=== PATIENT | male | born 1965 | race Caucasian/White ===

== ENCOUNTER 2020-10-10 12:36 | Inpatient (IN) | payer BC, SELFPAY ==
[~2020-10-10] VITALS: Ht 182.9 cm; Wt 99.8 kg
[2020-10-10 13:03] VITALS: BP_SYST 148
[2020-10-10] MEDS ORDERED: AZITHROMYCIN 500 MG in NS 250 ML IV ONE (13:30)
[2020-10-10] MEDS ORDERED: DEXAMETHASONE SOD PHOSPHATE 10 MG/ML VIAL IVP ONE (13:30)
[2020-10-10 13:58] LABS: BILIRUBIN,URINE NEGATIVE (NEGATIVE); BLOOD, URINE 3+ (NEGATIVE); CLARITY/URINE CLEAR (CLEAR); COLOR,URINE YELLOW (YELLOW); GLUCOSE,URINE NEGATIVE (NEGATIVE); KETONES,URINE TRACE (NEGATIVE); LEUKOCYTE ESTERASE ,URINE NEGATIVE (NEGATIVE); NITRITE, URINE NEGATIVE (NEGATIVE); PROTEIN URINE 2+ (NEGATIVE)
[2020-10-10 14:11] LABS: CALCIUM 8.1 mg/dL (8.4-11.0); CREATININE 1.06 mg/dL (0.55-1.30); POTASSIUM 3.8 mmol/L (3.5-5.1)
[2020-10-10 14:14] LABS: BASOPHILS % (AUTO) 0.4 % (0.0-2.0); HEMATOCRIT 44.7 % (36-54); HEMOGLOBIN 15.5 g/dL (14.0-18.0); LYMPHOCYTES # (AUTO) 0.5 K/uL (1.0-5.5); LYMPHOCYTES % (AUTO) 13.4 % (20.5-51.5); MEAN CORPUSCULAR HEMOGLOBIN 29 pg (27-31); MEAN CORPUSCULAR HGB CONC 35 % (32-36); MEAN CORPUSCULAR VOLUME 84 fL (79.0-98.0); MONOCYTES # (AUTO) 0.3 K/uL (0.0-1.0); MONOCYTES % (AUTO) 7.8 % (1.7-9.3); NEUTROPHILS # (AUTO) 3.1 K/uL (1.8-7.7); NEUTROPHILS % (AUTO) 78.4 % (40.0-70.0); PLATELET COUNT (AUTO) 81 K/uL (130-430); RED BLOOD CELL COUNT(AUTO) 5.31 MIL/uL (4.2-6.2); RED CELL DISTRIBUTION WIDTH 13.1 % (9.0-15.0)
[2020-10-10] MEDS ORDERED: AZITHROMYCIN 500 MG/VIAL (ZITHROMAX) IV ONE (14:19)
[2020-10-10 14:23] LABS: PROTHROMBIN TIME 9.9 SECS (9.5-12.5)
[2020-10-10 14:25] LABS: RBC,URINE 0-3 /HPF (0-3); WBC,URINE 0-3 /HPF (0-3)
[2020-10-10 14:26] LABS: ALBUMIN 3.4 g/dL (3.4-4.8)
[2020-10-10 14:26] LABS: BACTERIA,URINE RARE /HPF (None Seen); MUCUS,URINE 1+ /LPF (None Seen)
[2020-10-10 14:55] LABS: C-REACTIVE PROTEIN QUANT 19.8 mg/dL (0-0.5)
[2020-10-10] MEDS: 0.45% NACL 1,000 ML IV SCH (17:31)
[2020-10-10] MEDS ORDERED: DOXYCYCLINE HYCLATE 100 MG VIAL IV ONE (20:24)
[2020-10-10] MEDS: DOXYCYCLINE HYCLATE 100 MG in D5W 100 ML IV SCH (20:46)
[2020-10-10] MEDS ORDERED: ASCORBIC ACID 500 MG TABLET PO ONE (21:00)
[2020-10-10] MEDS ORDERED: ENOXAPARIN SODIUM 40 MG/0.4 ML SYRINGE SUBCUT ONE (21:00)
[2020-10-11] VITALS: BP_SYST 145
[2020-10-11 00:30] VITALS: BP_SYST 150
[2020-10-11] MEDS: 0.45% NACL 1,000 ML IV SCH ×2 (05:06→17:23)
[2020-10-11 06:58] LABS: CALCIUM 7.9 mg/dL (8.4-11.0); CREATININE 0.85 mg/dL (0.55-1.30); POTASSIUM 3.3 mmol/L (3.5-5.1)
[2020-10-11 07:01] LABS: BASOPHILS % (AUTO) 0.1 % (0.0-2.0); HEMATOCRIT 42.3 % (36-54); HEMOGLOBIN 14.5 g/dL (14.0-18.0); LYMPHOCYTES # (AUTO) 0.4 K/uL (1.0-5.5); LYMPHOCYTES % (AUTO) 12.4 % (20.5-51.5); MEAN CORPUSCULAR HEMOGLOBIN 29 pg (27-31); MEAN CORPUSCULAR HGB CONC 34 % (32-36); MEAN CORPUSCULAR VOLUME 85 fL (79.0-98.0); MONOCYTES # (AUTO) 0.3 K/uL (0.0-1.0); NEUTROPHILS # (AUTO) 2.6 K/uL (1.8-7.7); NEUTROPHILS % (AUTO) 78.5 % (40.0-70.0); PLATELET COUNT (AUTO) 98 K/uL (130-430); RED CELL DISTRIBUTION WIDTH 13.7 % (9.0-15.0); WHITE BLOOD COUNT (AUTO) 3.4 K/uL (4.8-10.8)
[2020-10-11 08:10] VITALS: BP_SYST 146
[2020-10-11] MEDS: CHOLECALCIFEROL (VITAMIN D3) 5,000 UNIT TABLET PO SCH (10:30)
[2020-10-11] MEDS: ENOXAPARIN SODIUM 40 MG/0.4 ML SYRINGE SUBCUT SCH ×2 (10:30→21:00)
[2020-10-11] MEDS: ASCORBIC ACID 500 MG TABLET PO SCH ×2 (10:30→21:00)
[2020-10-11] MEDS: DEXAMETHASONE SOD PHOSPHATE 10 MG/ML VIAL IVP SCH (10:30)
[2020-10-11] MEDS: DOXYCYCLINE HYCLATE 100 MG in D5W 100 ML IV SCH ×2 (10:31→21:00)
[2020-10-11 11:45] LABS: C-REACTIVE PROTEIN QUANT 17.4 mg/dL (0-0.5)
[2020-10-11 12:40] VITALS: BP_SYST 146
[2020-10-11 16:05] VITALS: BP_SYST 146
[2020-10-11 20:00] VITALS: BP_SYST 135
[2020-10-12] VITALS: BP_SYST 128
[2020-10-12] MEDS: 0.45% NACL 1,000 ML IV SCH ×2 (06:57→21:05)
[2020-10-12] MEDS: DOXYCYCLINE HYCLATE 100 MG in D5W 100 ML IV SCH ×2 (08:03→21:00)
[2020-10-12] MEDS: FAMOTIDINE 20 MG TABLET PO SCH (08:04)
[2020-10-12] MEDS: CHOLECALCIFEROL (VITAMIN D3) 5,000 UNIT TABLET PO SCH (08:04)
[2020-10-12] MEDS: DEXAMETHASONE SOD PHOSPHATE 10 MG/ML VIAL IVP SCH (08:04)
[2020-10-12] MEDS: ASCORBIC ACID 500 MG TABLET PO SCH ×2 (08:04→21:00)
[2020-10-12 08:07] VITALS: BP_SYST 137
[2020-10-12 08:52] LABS: BASOPHILS % (AUTO) 0.1 % (0.0-2.0); HEMOGLOBIN 14.1 g/dL (14.0-18.0); LYMPHOCYTES # (AUTO) 0.8 K/uL (1.0-5.5); LYMPHOCYTES % (AUTO) 8.8 % (20.5-51.5); MEAN CORPUSCULAR HEMOGLOBIN 30 pg (27-31); MEAN CORPUSCULAR HGB CONC 35 % (32-36); MEAN CORPUSCULAR VOLUME 84 fL (79.0-98.0); MONOCYTES # (AUTO) 0.6 K/uL (0.0-1.0); MONOCYTES % (AUTO) 6.5 % (1.7-9.3); NEUTROPHILS # (AUTO) 7.5 K/uL (1.8-7.7); NEUTROPHILS % (AUTO) 84.6 % (40.0-70.0); PLATELET COUNT (AUTO) 144 K/uL (130-430); RED BLOOD CELL COUNT(AUTO) 4.74 MIL/uL (4.2-6.2); RED CELL DISTRIBUTION WIDTH 13.4 % (9.0-15.0); WHITE BLOOD COUNT (AUTO) 8.9 K/uL (4.8-10.8)
[2020-10-12] MEDS: BUDESONIDE 0.5 MG/2 ML AMPUL.NEB INH SCH (09:00)
[2020-10-12 09:27] LABS: CREATININE 0.82 mg/dL (0.55-1.30); POTASSIUM 3.5 mmol/L (3.5-5.1)
[2020-10-12] MEDS: ENOXAPARIN SODIUM 40 MG/0.4 ML SYRINGE SUBCUT SCH ×2 (09:37→21:00)
[2020-10-12 12:08] LABS: C-REACTIVE PROTEIN QUANT 8.1 mg/dL (0-0.5)
[2020-10-12] MEDS: cefTRIAXone 1 GM in D5W 50 ML IV SCH (16:12)
[2020-10-12] MEDS: ONDANSETRON HCL 4 MG/2 ML VIAL IVP PRN ×2 (16:58→23:33)
[2020-10-12 17:08] VITALS: BP_SYST 137
[2020-10-12 20:00] VITALS: BP_SYST 142
[2020-10-12] MEDS: ALPRAZolam 0.25 MG TABLET PO PRN (23:33)
[2020-10-12] MEDS: ALBUTEROL MDI INHALATION 8 GM INH INH PRN (23:33)
[2020-10-13] VITALS: BP_SYST 138
[2020-10-13 08:00] VITALS: BP_SYST 142
[2020-10-13] MEDS: DEXAMETHASONE SOD PHOSPHATE 10 MG/ML VIAL IVP SCH (08:53)
[2020-10-13] MEDS: ASCORBIC ACID 500 MG TABLET PO SCH ×3 (08:53→21:00)
[2020-10-13] MEDS: FAMOTIDINE 20 MG TABLET PO SCH ×2 (08:53→09:00)
[2020-10-13] MEDS: CHOLECALCIFEROL (VITAMIN D3) 5,000 UNIT TABLET PO SCH ×2 (08:53→09:00)
[2020-10-13] MEDS: ENOXAPARIN SODIUM 40 MG/0.4 ML SYRINGE SUBCUT SCH ×2 (08:53→21:00)
[2020-10-13] MEDS: DOXYCYCLINE HYCLATE 100 MG in D5W 100 ML IV SCH ×2 (08:55→21:00)
[2020-10-13] MEDS: BUDESONIDE 0.5 MG/2 ML AMPUL.NEB INH SCH ×2 (09:00→19:27)
[2020-10-13] MEDS: 0.45% NACL 1,000 ML IV SCH ×2 (10:25→12:10)
[2020-10-13] MEDS: ALBUTEROL MDI INHALATION 8 GM INH INH PRN (10:47)
[2020-10-13 12:10] VITALS: BP_SYST 135
[2020-10-13] MEDS: cefTRIAXone 1 GM in D5W 50 ML IV SCH (15:15)
[2020-10-13 16:00] VITALS: BP_SYST 126
[2020-10-13 20:00] VITALS: BP_SYST 130
[2020-10-14] VITALS: BP_SYST 125
[2020-10-14] MEDS: ASCORBIC ACID 500 MG TABLET PO SCH ×2 (09:00→22:13)
[2020-10-14] MEDS: DEXAMETHASONE SOD PHOSPHATE 10 MG/ML VIAL IVP SCH (09:00)
[2020-10-14] MEDS: CHOLECALCIFEROL (VITAMIN D3) 5,000 UNIT TABLET PO SCH (09:00)
[2020-10-14] MEDS: ENOXAPARIN SODIUM 40 MG/0.4 ML SYRINGE SUBCUT SCH ×2 (09:00→22:14)
[2020-10-14] MEDS: DOXYCYCLINE HYCLATE 100 MG in D5W 100 ML IV SCH ×2 (09:00→22:13)
[2020-10-14] MEDS: FAMOTIDINE 20 MG TABLET PO SCH (09:00)
[2020-10-14 09:39] LABS: BASOPHILS % (AUTO) 0.3 % (0.0-2.0); EOSINOPHILS % (AUTO) 0.2 % (0.0-4.0); HEMATOCRIT 43.2 % (36-54); HEMOGLOBIN 14.9 g/dL (14.0-18.0); LYMPHOCYTES # (AUTO) 0.8 K/uL (1.0-5.5); LYMPHOCYTES % (AUTO) 8.5 % (20.5-51.5); MEAN CORPUSCULAR HEMOGLOBIN 29 pg (27-31); MEAN CORPUSCULAR HGB CONC 34 % (32-36); MEAN CORPUSCULAR VOLUME 84 fL (79.0-98.0); MONOCYTES # (AUTO) 0.7 K/uL (0.0-1.0); MONOCYTES % (AUTO) 7.7 % (1.7-9.3); NEUTROPHILS # (AUTO) 7.5 K/uL (1.8-7.7); NEUTROPHILS % (AUTO) 83.3 % (40.0-70.0); PLATELET COUNT (AUTO) 217 K/uL (130-430); RED BLOOD CELL COUNT(AUTO) 5.13 MIL/uL (4.2-6.2); RED CELL DISTRIBUTION WIDTH 13.7 % (9.0-15.0)
[2020-10-14 11:05] VITALS: BP_SYST 133
[2020-10-14] MEDS: 0.45% NACL 1,000 ML IV SCH ×2 (13:05→16:25)
[2020-10-14 14:47] VITALS: BP_SYST 133
[2020-10-14 15:30] VITALS: BP_SYST 130
[2020-10-14] MEDS: cefTRIAXone 1 GM in D5W 50 ML IV SCH (15:32)
[2020-10-14 20:00] VITALS: BP_SYST 130
[2020-10-14 23:30] VITALS: BP_SYST 127
[2020-10-15] MEDS: 0.45% NACL 1,000 ML IV SCH (06:34)
[2020-10-15] MEDS: ACETAMINOPHEN 325 MG TABLET PO PRN ×2 (06:35→12:15)
[2020-10-15] MEDS: CHOLECALCIFEROL (VITAMIN D3) 5,000 UNIT TABLET PO SCH (09:00)
[2020-10-15] MEDS: FAMOTIDINE 20 MG TABLET PO SCH (09:00)
[2020-10-15] MEDS: ENOXAPARIN SODIUM 40 MG/0.4 ML SYRINGE SUBCUT SCH ×2 (09:00→23:00)
[2020-10-15] MEDS: DOXYCYCLINE HYCLATE 100 MG in D5W 100 ML IV SCH ×2 (09:00→23:00)
[2020-10-15] MEDS: ASCORBIC ACID 500 MG TABLET PO SCH ×2 (09:00→23:35)
[2020-10-15] MEDS: DEXAMETHASONE SOD PHOSPHATE 10 MG/ML VIAL IVP SCH (09:00)
[2020-10-15 10:20] VITALS: BP_SYST 131
[2020-10-15 12:00] VITALS: BP_SYST 141
[2020-10-15] MEDS: cefTRIAXone 1 GM in D5W 50 ML IV SCH (15:00)
[2020-10-15 16:00] VITALS: BP_SYST 125
[2020-10-15 20:30] VITALS: BP_SYST 150
[2020-10-15] MEDS: BUDESONIDE 0.5 MG/2 ML AMPUL.NEB INH SCH (21:00)
[2020-10-15 23:20] VITALS: BP_SYST 157
[2020-10-15] MEDS: ALPRAZolam 0.25 MG TABLET PO PRN (23:35)
[2020-10-16 00:30] VITALS: BP_SYST 110
[2020-10-16] MEDS: 0.45% NACL 1,000 ML IV SCH ×2 (00:30→19:05)
[2020-10-16] MEDS: ALBUTEROL MDI INHALATION 8 GM INH INH PRN (00:48)
[2020-10-16] MEDS ORDERED: LORazepam 2 MG/ML VIAL IVP PRN (02:00)
[2020-10-16] MEDS ORDERED: ALPRAZolam 0.25 MG TABLET PO PRN (02:45)
[2020-10-16] MEDS: FAMOTIDINE 20 MG TABLET PO SCH (09:00)
[2020-10-16] MEDS: CHOLECALCIFEROL (VITAMIN D3) 5,000 UNIT TABLET PO SCH (09:00)
[2020-10-16] MEDS: ASCORBIC ACID 500 MG TABLET PO SCH ×2 (09:00→21:15)
[2020-10-16 09:30] VITALS: BP_SYST 130
[2020-10-16] MEDS: DOXYCYCLINE HYCLATE 100 MG in D5W 100 ML IV SCH ×2 (10:07→21:15)
[2020-10-16] MEDS: DEXAMETHASONE SOD PHOSPHATE 10 MG/ML VIAL IVP SCH (10:07)
[2020-10-16] MEDS: ENOXAPARIN SODIUM 40 MG/0.4 ML SYRINGE SUBCUT SCH ×2 (10:13→21:15)
[2020-10-16 12:30] VITALS: BP_SYST 138
[2020-10-16] MEDS: cefTRIAXone 1 GM in D5W 50 ML IV SCH (15:13)
[2020-10-16 17:00] VITALS: BP_SYST 129
[2020-10-16 20:20] VITALS: BP_SYST 140
[2020-10-16] MEDS: BUDESONIDE 0.5 MG/2 ML AMPUL.NEB INH SCH (20:58)
[2020-10-17] VITALS (18 sets, daily range): BP systolic 106–156
[2020-10-17] MEDS: MEROPENEM 1 GM in NS 100 ML IV SCH (01:00)
[2020-10-17] MEDS: ONDANSETRON HCL 4 MG/2 ML VIAL IVP PRN (03:15)
[2020-10-17 07:19] LABS: BASOPHILS # (AUTO) 0.1 K/uL (0.0-0.2); BASOPHILS % (AUTO) 0.5 % (0.0-2.0); EOSINOPHILS % (AUTO) 0.3 % (0.0-4.0); HEMATOCRIT 42.7 % (36-54); HEMOGLOBIN 14.4 g/dL (14.0-18.0); LYMPHOCYTES # (AUTO) 0.7 K/uL (1.0-5.5); MEAN CORPUSCULAR HEMOGLOBIN 29 pg (27-31); MEAN CORPUSCULAR HGB CONC 34 % (32-36); MEAN CORPUSCULAR VOLUME 86 fL (79.0-98.0); MONOCYTES # (AUTO) 0.8 K/uL (0.0-1.0); MONOCYTES % (AUTO) 5.8 % (1.7-9.3); NEUTROPHILS # (AUTO) 12.8 K/uL (1.8-7.7); NEUTROPHILS % (AUTO) 88.4 % (40.0-70.0); RED BLOOD CELL COUNT(AUTO) 4.97 MIL/uL (4.2-6.2); RED CELL DISTRIBUTION WIDTH 13.6 % (9.0-15.0)
[2020-10-17 07:47] LABS: CALCIUM 8.7 mg/dL (8.4-11.0); CREATININE 0.87 mg/dL (0.55-1.30)
[2020-10-17 07:58] LABS: WHITE BLOOD COUNT (AUTO) 14.5 K/uL (4.8-10.8)
[2020-10-17] MEDS: ENOXAPARIN SODIUM 40 MG/0.4 ML SYRINGE SUBCUT SCH ×2 (09:00→21:54)
[2020-10-17] MEDS: FAMOTIDINE 20 MG TABLET PO SCH (09:00)
[2020-10-17] MEDS: CHOLECALCIFEROL (VITAMIN D3) 5,000 UNIT TABLET PO SCH (09:00)
[2020-10-17] MEDS: BUDESONIDE 0.5 MG/2 ML AMPUL.NEB INH SCH (09:00)
[2020-10-17] MEDS: ASCORBIC ACID 500 MG TABLET PO SCH ×2 (09:00→21:53)
[2020-10-17] MEDS: DEXAMETHASONE SOD PHOSPHATE 10 MG/ML VIAL IVP SCH (10:43)
[2020-10-17] MEDS ORDERED: SUCCINYLCHOLINE CHLORIDE 20 MG/ML(QUELICIN) IVP ONE (12:27)
[2020-10-17] MEDS ORDERED: PANCURONIUM BROMIDE 10 MG/10 ML VIAL (PAVULON) IV ONE (12:27)
[2020-10-17] MEDS ORDERED: ROCURONIUM BROMIDE 10 MG/ML (ZEMURON) IV ONE (12:27)
[2020-10-17] MEDS ORDERED: PROPOFOL DRIP 100 ML IV ONE (12:44)
[2020-10-17 12:46] LABS: PLATELET COUNT (AUTO) 236 K/uL (130-430)
[2020-10-17] MEDS: 0.45% NACL 1,000 ML IV SCH ×2 (14:00→21:05)
[2020-10-17] MEDS: cefTRIAXone 1 GM in D5W 50 ML IV SCH (14:45)
[2020-10-17] MEDS ORDERED: NALOXONE HCL 0.4 MG/ML AMP (NARCAN) IVP PRN (16:45)
[2020-10-17] MEDS: PROPOFOL DRIP 100 ML IV PRN (18:32)
[2020-10-17] MEDS: LORazepam 2 MG/ML VIAL IVP PRN (23:26)
[2020-10-18] VITALS (27 sets, daily range): BP systolic 106–156
[2020-10-18] MEDS ORDERED: MEROPENEM 1 GM VIAL IV ONE (00:48)
[2020-10-18] MEDS: MEROPENEM 1 GM in NS 100 ML IV SCH (01:00)
[2020-10-18] MEDS: PROPOFOL DRIP 100 ML IV PRN ×4 (04:44→21:08)
[2020-10-18] MEDS: 0.45% NACL 1,000 ML IV SCH ×2 (05:57→13:45)
[2020-10-18 06:39] LABS: BASOPHILS % (AUTO) 0.1 % (0.0-2.0); EOSINOPHILS % (AUTO) 0.1 % (0.0-4.0); HEMATOCRIT 38.7 % (36-54); HEMOGLOBIN 12.9 g/dL (14.0-18.0); LYMPHOCYTES # (AUTO) 0.6 K/uL (1.0-5.5); LYMPHOCYTES % (AUTO) 4.9 % (20.5-51.5); MEAN CORPUSCULAR HEMOGLOBIN 29 pg (27-31); MEAN CORPUSCULAR HGB CONC 33 % (32-36); MEAN CORPUSCULAR VOLUME 86 fL (79.0-98.0); MONOCYTES # (AUTO) 0.6 K/uL (0.0-1.0); MONOCYTES % (AUTO) 4.6 % (1.7-9.3); NEUTROPHILS # (AUTO) 11.6 K/uL (1.8-7.7); NEUTROPHILS % (AUTO) 90.3 % (40.0-70.0); PLATELET COUNT (AUTO) 174 K/uL (130-430); RED BLOOD CELL COUNT(AUTO) 4.49 MIL/uL (4.2-6.2); RED CELL DISTRIBUTION WIDTH 13.7 % (9.0-15.0); WHITE BLOOD COUNT (AUTO) 12.8 K/uL (4.8-10.8)
[2020-10-18 07:03] LABS: CALCIUM 8.4 mg/dL (8.4-11.0); CREATININE 0.79 mg/dL (0.55-1.30); TOTAL BILIRUBIN 0.7 mg/dL (0.0-1.0)
[2020-10-18 07:58] LABS: C-REACTIVE PROTEIN QUANT 39.6 mg/dL (0-0.5)
[2020-10-18] MEDS: DEXAMETHASONE SOD PHOSPHATE 10 MG/ML VIAL IVP SCH (08:48)
[2020-10-18] MEDS: ASCORBIC ACID 500 MG TABLET PO SCH ×2 (08:48→22:12)
[2020-10-18] MEDS: CHOLECALCIFEROL (VITAMIN D3) 5,000 UNIT TABLET PO SCH (08:48)
[2020-10-18] MEDS: FAMOTIDINE 20 MG TABLET PO SCH (08:48)
[2020-10-18] MEDS: ENOXAPARIN SODIUM 40 MG/0.4 ML SYRINGE SUBCUT SCH (08:48)
[2020-10-18] MEDS: ENOXAPARIN SODIUM 100 MG/ML SYRINGE SUBCUT SCH (22:22)
[2020-10-18] MEDS ORDERED: ENOXAPARIN SODIUM 100 MG/ML SYRINGE ONE (22:22)
[2020-10-19] VITALS (24 sets, daily range): BP systolic 103–154
[2020-10-19] MEDS: PROPOFOL DRIP 100 ML IV PRN ×4 (03:58→22:07)
[2020-10-19] MEDS: 0.45% NACL 1,000 ML IV SCH (04:14)
[2020-10-19] MEDS: MEROPENEM 1 GM in NS 100 ML IV SCH ×3 (05:19→22:00)
[2020-10-19 07:27] LABS: BASOPHILS % (AUTO) 0.3 % (0.0-2.0); EOSINOPHILS % (AUTO) 0.2 % (0.0-4.0); HEMATOCRIT 37.6 % (36-54); HEMOGLOBIN 12.6 g/dL (14.0-18.0); LYMPHOCYTES # (AUTO) 0.7 K/uL (1.0-5.5); LYMPHOCYTES % (AUTO) 5.6 % (20.5-51.5); MEAN CORPUSCULAR HEMOGLOBIN 29 pg (27-31); MEAN CORPUSCULAR HGB CONC 34 % (32-36); MEAN CORPUSCULAR VOLUME 86 fL (79.0-98.0); MONOCYTES # (AUTO) 0.5 K/uL (0.0-1.0); MONOCYTES % (AUTO) 4.6 % (1.7-9.3); NEUTROPHILS # (AUTO) 10.7 K/uL (1.8-7.7); NEUTROPHILS % (AUTO) 89.3 % (40.0-70.0); PLATELET COUNT (AUTO) 181 K/uL (130-430); RED BLOOD CELL COUNT(AUTO) 4.35 MIL/uL (4.2-6.2); RED CELL DISTRIBUTION WIDTH 13.7 % (9.0-15.0)
[2020-10-19] MEDS ORDERED: COMMUNICATION ORDER XX ONE (08:00)
[2020-10-19 08:07] LABS: CALCIUM 8.2 mg/dL (8.4-11.0); CREATININE 0.69 mg/dL (0.55-1.30); POTASSIUM 4.2 mmol/L (3.5-5.1); TOTAL BILIRUBIN 0.7 mg/dL (0.0-1.0)
[2020-10-19] MEDS: CHOLECALCIFEROL (VITAMIN D3) 5,000 UNIT TABLET PO SCH (09:43)
[2020-10-19] MEDS: DEXAMETHASONE SOD PHOSPHATE 10 MG/ML VIAL IVP SCH (09:43)
[2020-10-19] MEDS: FAMOTIDINE 20 MG TABLET PO SCH (09:43)
[2020-10-19] MEDS: ASCORBIC ACID 500 MG TABLET PO SCH (09:43)
[2020-10-19] MEDS ORDERED: ENOXAPARIN SODIUM 100 MG/ML SYRINGE ONE ×2 (09:46→21:11)
[2020-10-19] MEDS: ENOXAPARIN SODIUM 100 MG/ML SYRINGE SUBCUT SCH ×2 (09:48→21:12)
[2020-10-19] MEDS: LORazepam 2 MG/ML VIAL IVP PRN (11:07)
[2020-10-19] MEDS: ASCORBIC ACID 500 MG TABLET NG SCH (21:09)
[2020-10-20] VITALS (31 sets, daily range): BP systolic 18–159
[2020-10-20] MEDS ORDERED: MEROPENEM 1 GM VIAL IV ONE (00:16)
[2020-10-20] MEDS: PROPOFOL DRIP 100 ML IV PRN ×4 (01:45→22:58)
[2020-10-20] MEDS: 0.45% NACL 1,000 ML IV SCH ×2 (02:25→13:22)
[2020-10-20] MEDS: MEROPENEM 1 GM in NS 100 ML IV SCH ×3 (06:09→21:59)
[2020-10-20 07:26] LABS: ALBUMIN 1.9 g/dL (3.4-4.8); CALCIUM 8.1 mg/dL (8.4-11.0); CREATININE 0.72 mg/dL (0.55-1.30); POTASSIUM 4.1 mmol/L (3.5-5.1); TOTAL BILIRUBIN 0.7 mg/dL (0.0-1.0)
[2020-10-20 07:53] LABS: BASOPHILS % (AUTO) 0.3 % (0.0-2.0); EOSINOPHILS % (AUTO) 0.2 % (0.0-4.0); HEMATOCRIT 37.6 % (36-54); HEMOGLOBIN 12.5 g/dL (14.0-18.0); LYMPHOCYTES # (AUTO) 0.5 K/uL (1.0-5.5); MEAN CORPUSCULAR HEMOGLOBIN 29 pg (27-31); MEAN CORPUSCULAR HGB CONC 33 % (32-36); MEAN CORPUSCULAR VOLUME 87 fL (79.0-98.0); MONOCYTES # (AUTO) 0.3 K/uL (0.0-1.0); MONOCYTES % (AUTO) 2.9 % (1.7-9.3); NEUTROPHILS # (AUTO) 9.9 K/uL (1.8-7.7); NEUTROPHILS % (AUTO) 91.6 % (40.0-70.0); PLATELET COUNT (AUTO) 157 K/uL (130-430); RED BLOOD CELL COUNT(AUTO) 4.31 MIL/uL (4.2-6.2); RED CELL DISTRIBUTION WIDTH 13.5 % (9.0-15.0); WHITE BLOOD COUNT (AUTO) 10.8 K/uL (4.8-10.8)
[2020-10-20 08:32] LABS: C-REACTIVE PROTEIN QUANT 29.1 mg/dL (0-0.5)
[2020-10-20] MEDS: FAMOTIDINE 20 MG TABLET NG SCH (09:01)
[2020-10-20] MEDS: ASCORBIC ACID 500 MG TABLET NG SCH ×2 (09:01→21:58)
[2020-10-20] MEDS: DEXAMETHASONE SOD PHOSPHATE 10 MG/ML VIAL IVP SCH (09:02)
[2020-10-20] MEDS: CHOLECALCIFEROL (VITAMIN D3) 5,000 UNIT TABLET NG SCH (09:04)
[2020-10-20] MEDS ORDERED: ENOXAPARIN SODIUM 100 MG/ML SYRINGE ONE ×2 (09:42→21:30)
[2020-10-20] MEDS: ENOXAPARIN SODIUM 100 MG/ML SYRINGE SUBCUT SCH ×2 (09:55→21:00)
[2020-10-20] MEDS ORDERED: CALCIUM GLUCONATE 1 GM/10 ML VIAL IVP ONE (12:00)
[2020-10-20] MEDS ORDERED: BISACODYL 10 MG/SUPPOSITORY RC ONE (17:45)
[2020-10-20] MEDS: INSULIN REGULAR, HUMAN 100 UNITS/ML, 10 ML VIAL (humuLIN R) SUBCUT PRN (18:42)
[2020-10-20] MEDS: SENNOSIDES 8.6 MG TABLET NG SCH (21:00)
[2020-10-20] MEDS ORDERED: ASCORBIC ACID 500 MG TABLET ONE (21:29)
[2020-10-20] MEDS ORDERED: ACETAMINOPHEN 325 MG TABLET ONE (22:09)
[2020-10-20] MEDS ORDERED: LORazepam 2 MG/ML VIAL ONE (22:09)
[2020-10-21] VITALS (29 sets, daily range): BP systolic 100–136
[2020-10-21] MEDS: LORazepam 2 MG/ML VIAL IVP PRN (02:19)
[2020-10-21] MEDS: ACETAMINOPHEN 650 MG/20.3 ML UDC NG PRN (02:20)
[2020-10-21] MEDS: PROPOFOL DRIP 100 ML IV PRN ×3 (03:10→14:09)
[2020-10-21] MEDS ORDERED: MORPHINE 2 MG/ML INJ. SYRINGE ONE ×2 (03:16→23:17)
[2020-10-21] MEDS: MORPHINE 2 MG/ML INJ. SYRINGE IVP PRN (03:31)
[2020-10-21] MEDS: 0.45% NACL 1,000 ML IV SCH ×2 (03:50→17:15)
[2020-10-21 06:45] LABS: BASOPHILS % (AUTO) 0.3 % (0.0-2.0); EOSINOPHILS # (AUTO) 0.1 K/uL (0.0-0.4); EOSINOPHILS % (AUTO) 1.3 % (0.0-4.0); HEMATOCRIT 34.4 % (36-54); HEMOGLOBIN 11.5 g/dL (14.0-18.0); LYMPHOCYTES # (AUTO) 0.7 K/uL (1.0-5.5); LYMPHOCYTES % (AUTO) 6.7 % (20.5-51.5); MEAN CORPUSCULAR HEMOGLOBIN 29 pg (27-31); MEAN CORPUSCULAR HGB CONC 33 % (32-36); MEAN CORPUSCULAR VOLUME 87 fL (79.0-98.0); MONOCYTES # (AUTO) 0.2 K/uL (0.0-1.0); MONOCYTES % (AUTO) 2.4 % (1.7-9.3); NEUTROPHILS # (AUTO) 8.7 K/uL (1.8-7.7); NEUTROPHILS % (AUTO) 89.3 % (40.0-70.0); PLATELET COUNT (AUTO) 169 K/uL (130-430); RED BLOOD CELL COUNT(AUTO) 3.95 MIL/uL (4.2-6.2); RED CELL DISTRIBUTION WIDTH 13.6 % (9.0-15.0); WHITE BLOOD COUNT (AUTO) 9.8 K/uL (4.8-10.8)
[2020-10-21 07:03] LABS: ALBUMIN 1.7 g/dL (3.4-4.8); CALCIUM 7.9 mg/dL (8.4-11.0); CREATININE 0.66 mg/dL (0.55-1.30); PHOSPHORUS 2.6 mg/dL (2.7-4.5); POTASSIUM 3.8 mmol/L (3.5-5.1)
[2020-10-21] MEDS: MEROPENEM 1 GM in NS 100 ML IV SCH ×3 (07:08→22:42)
[2020-10-21] MEDS: ALBUTEROL MDI INHALATION 8 GM INH INH PRN (11:51)
[2020-10-21] MEDS: ASCORBIC ACID 500 MG TABLET NG SCH ×2 (12:03→21:17)
[2020-10-21] MEDS: FAMOTIDINE 20 MG TABLET NG SCH (12:04)
[2020-10-21] MEDS: CHOLECALCIFEROL (VITAMIN D3) 5,000 UNIT TABLET NG SCH (12:04)
[2020-10-21] MEDS: DEXAMETHASONE SOD PHOSPHATE 10 MG/ML VIAL IVP SCH (12:04)
[2020-10-21] MEDS ORDERED: LORazepam 2 MG/ML VIAL ONE (12:40)
[2020-10-21] MEDS: ENOXAPARIN SODIUM 100 MG/ML SYRINGE SUBCUT SCH ×2 (14:38→21:00)
[2020-10-21] MEDS: INSULIN REGULAR, HUMAN 100 UNITS/ML, 10 ML VIAL (humuLIN R) SUBCUT PRN (17:22)
[2020-10-21] MEDS: FLUCONAZOLE 100 mg/ NS 50 ML IV SCH (20:00)
[2020-10-21] MEDS: BUDESONIDE 0.5 MG/2 ML AMPUL.NEB INH SCH (21:00)
[2020-10-21] MEDS: SENNOSIDES 8.6 MG TABLET NG SCH (21:17)
[2020-10-21] MEDS ORDERED: FLUCONAZOLE 200 mg/ NS 100 ML IV ONE (21:54)
[2020-10-22] VITALS (23 sets, daily range): BP systolic 108–150
[2020-10-22] MEDS: PROPOFOL DRIP 100 ML IV PRN ×6 (01:19→22:09)
[2020-10-22] MEDS: INSULIN REGULAR, HUMAN 100 UNITS/ML, 10 ML VIAL (humuLIN R) SUBCUT PRN (01:21)
[2020-10-22] MEDS: MORPHINE 2 MG/ML INJ. SYRINGE IVP PRN ×2 (01:22→06:24)
[2020-10-22] MEDS: MEROPENEM 1 GM in NS 100 ML IV SCH (05:19)
[2020-10-22 05:24] LABS: BASOPHILS % (AUTO) 0.4 % (0.0-2.0); EOSINOPHILS % (AUTO) 0.1 % (0.0-4.0); HEMATOCRIT 32.7 % (36-54); HEMOGLOBIN 11.1 g/dL (14.0-18.0); LYMPHOCYTES # (AUTO) 0.6 K/uL (1.0-5.5); LYMPHOCYTES % (AUTO) 6.7 % (20.5-51.5); MEAN CORPUSCULAR HEMOGLOBIN 29 pg (27-31); MEAN CORPUSCULAR HGB CONC 34 % (32-36); MEAN CORPUSCULAR VOLUME 86 fL (79.0-98.0); MONOCYTES # (AUTO) 0.3 K/uL (0.0-1.0); MONOCYTES % (AUTO) 3.6 % (1.7-9.3); NEUTROPHILS # (AUTO) 7.4 K/uL (1.8-7.7); NEUTROPHILS % (AUTO) 89.2 % (40.0-70.0); PLATELET COUNT (AUTO) 164 K/uL (130-430); RED BLOOD CELL COUNT(AUTO) 3.79 MIL/uL (4.2-6.2); RED CELL DISTRIBUTION WIDTH 13.4 % (9.0-15.0); WHITE BLOOD COUNT (AUTO) 8.3 K/uL (4.8-10.8)
[2020-10-22 05:40] LABS: CREATININE 0.47 mg/dL (0.55-1.30); PHOSPHORUS 2.8 mg/dL (2.7-4.5); POTASSIUM 4.2 mmol/L (3.5-5.1)
[2020-10-22] MEDS ORDERED: MORPHINE 2 MG/ML INJ. SYRINGE ONE (06:10)
[2020-10-22] MEDS: DEXAMETHASONE SOD PHOSPHATE 10 MG/ML VIAL IVP SCH (08:54)
[2020-10-22] MEDS: FAMOTIDINE 20 MG TABLET NG SCH (08:54)
[2020-10-22] MEDS: ASCORBIC ACID 500 MG TABLET NG SCH ×2 (08:54→21:34)
[2020-10-22] MEDS: CHOLECALCIFEROL (VITAMIN D3) 5,000 UNIT TABLET NG SCH (08:54)
[2020-10-22] MEDS: ENOXAPARIN SODIUM 100 MG/ML SYRINGE SUBCUT SCH ×2 (08:55→21:38)
[2020-10-22] MEDS: 0.45% NACL 1,000 ML IV SCH ×2 (08:55→21:05)
[2020-10-22] MEDS: BUDESONIDE 0.5 MG/2 ML AMPUL.NEB INH SCH (09:00)
[2020-10-22] MEDS: FLUCONAZOLE 100 mg/ NS 50 ML IV SCH (21:24)
[2020-10-22] MEDS: CEFEPIME 1 GM in D5W 50 ML IV SCH (21:29)
[2020-10-22] MEDS: SENNOSIDES 8.6 MG TABLET NG SCH (21:40)
[2020-10-23] VITALS (29 sets, daily range): BP systolic 102–164
[2020-10-23 09:03] LABS: BASOPHILS # (AUTO) 0.1 K/uL (0.0-0.2); BASOPHILS % (AUTO) 0.7 % (0.0-2.0); EOSINOPHILS # (AUTO) 0.2 K/uL (0.0-0.4); EOSINOPHILS % (AUTO) 1.6 % (0.0-4.0); HEMATOCRIT 36.1 % (36-54); HEMOGLOBIN 11.9 g/dL (14.0-18.0); LYMPHOCYTES # (AUTO) 0.5 K/uL (1.0-5.5); LYMPHOCYTES % (AUTO) 4.9 % (20.5-51.5); MEAN CORPUSCULAR HEMOGLOBIN 29 pg (27-31); MEAN CORPUSCULAR HGB CONC 33 % (32-36); MEAN CORPUSCULAR VOLUME 87 fL (79.0-98.0); MONOCYTES # (AUTO) 0.4 K/uL (0.0-1.0); MONOCYTES % (AUTO) 4.3 % (1.7-9.3); NEUTROPHILS # (AUTO) 9.2 K/uL (1.8-7.7); NEUTROPHILS % (AUTO) 88.5 % (40.0-70.0); PLATELET COUNT (AUTO) 195 K/uL (130-430); RED BLOOD CELL COUNT(AUTO) 4.14 MIL/uL (4.2-6.2); RED CELL DISTRIBUTION WIDTH 13.8 % (9.0-15.0); WHITE BLOOD COUNT (AUTO) 10.4 K/uL (4.8-10.8)
[2020-10-23 09:16] LABS: CREATININE 0.56 mg/dL (0.55-1.30); POTASSIUM 3.8 mmol/L (3.5-5.1)
[2020-10-23] MEDS: DEXAMETHASONE SOD PHOSPHATE 10 MG/ML VIAL IVP SCH (09:30)
[2020-10-23] MEDS: CHOLECALCIFEROL (VITAMIN D3) 5,000 UNIT TABLET NG SCH (09:31)
[2020-10-23] MEDS: FAMOTIDINE 20 MG TABLET NG SCH (09:31)
[2020-10-23] MEDS: ASCORBIC ACID 500 MG TABLET NG SCH ×2 (09:31→20:38)
[2020-10-23] MEDS: ENOXAPARIN SODIUM 100 MG/ML SYRINGE SUBCUT SCH ×2 (09:32→20:56)
[2020-10-23] MEDS: PROPOFOL DRIP 100 ML IV PRN ×3 (09:33→15:54)
[2020-10-23] MEDS: 0.45% NACL 1,000 ML IV SCH (09:34)
[2020-10-23] MEDS: CEFEPIME 1 GM in D5W 50 ML IV SCH ×2 (09:56→20:37)
[2020-10-23] MEDS ORDERED: MORPHINE 2 MG/ML INJ. SYRINGE ONE (11:35)
[2020-10-23] MEDS: LORazepam 2 MG/ML VIAL IVP PRN (11:54)
[2020-10-23] MEDS: MORPHINE 2 MG/ML INJ. SYRINGE IVP PRN (11:55)
[2020-10-23] MEDS: INSULIN REGULAR, HUMAN 100 UNITS/ML, 10 ML VIAL (humuLIN R) SUBCUT PRN (13:30)
[2020-10-23] MEDS: ALBUTEROL MDI INHALATION 8 GM INH INH PRN (20:34)
[2020-10-23] MEDS: FLUCONAZOLE 100 mg/ NS 50 ML IV SCH (20:37)
[2020-10-23] MEDS: SENNOSIDES 8.6 MG TABLET NG SCH ×2 (20:38→21:00)
[2020-10-24] VITALS (29 sets, daily range): BP systolic 111–155
[2020-10-24] MEDS: 0.45% NACL 1,000 ML IV SCH ×2 (00:39→13:05)
[2020-10-24] MEDS: PROPOFOL DRIP 100 ML IV PRN ×4 (01:01→11:15)
[2020-10-24 05:33] LABS: BASOPHILS # (AUTO) 0.1 K/uL (0.0-0.2); BASOPHILS % (AUTO) 0.7 % (0.0-2.0); EOSINOPHILS # (AUTO) 0.5 K/uL (0.0-0.4); EOSINOPHILS % (AUTO) 4.8 % (0.0-4.0); HEMATOCRIT 37.6 % (36-54); HEMOGLOBIN 12.4 g/dL (14.0-18.0); LYMPHOCYTES # (AUTO) 0.9 K/uL (1.0-5.5); LYMPHOCYTES % (AUTO) 7.7 % (20.5-51.5); MEAN CORPUSCULAR HEMOGLOBIN 29 pg (27-31); MEAN CORPUSCULAR HGB CONC 33 % (32-36); MEAN CORPUSCULAR VOLUME 88 fL (79.0-98.0); MONOCYTES # (AUTO) 0.3 K/uL (0.0-1.0); MONOCYTES % (AUTO) 2.8 % (1.7-9.3); NEUTROPHILS # (AUTO) 9.4 K/uL (1.8-7.7); PLATELET COUNT (AUTO) 237 K/uL (130-430); RED BLOOD CELL COUNT(AUTO) 4.26 MIL/uL (4.2-6.2); RED CELL DISTRIBUTION WIDTH 13.7 % (9.0-15.0); WHITE BLOOD COUNT (AUTO) 11.1 K/uL (4.8-10.8)
[2020-10-24 07:27] LABS: CALCIUM 8.2 mg/dL (8.4-11.0); CREATININE 0.36 mg/dL (0.55-1.30); POTASSIUM 3.9 mmol/L (3.5-5.1)
[2020-10-24] MEDS: HALOPERIDOL LACTATE 5 MG/ML VIAL IM PRN ×2 (08:27→13:14)
[2020-10-24] MEDS: ENOXAPARIN SODIUM 100 MG/ML SYRINGE SUBCUT SCH ×2 (09:00→21:31)
[2020-10-24] MEDS: CEFEPIME 1 GM in D5W 50 ML IV SCH ×2 (09:46→21:17)
[2020-10-24] MEDS: DEXAMETHASONE SOD PHOSPHATE 10 MG/ML VIAL IVP SCH (09:47)
[2020-10-24] MEDS: FAMOTIDINE 20 MG TABLET NG SCH (09:48)
[2020-10-24] MEDS: ASCORBIC ACID 500 MG TABLET NG SCH ×2 (09:49→21:17)
[2020-10-24] MEDS: CHOLECALCIFEROL (VITAMIN D3) 5,000 UNIT TABLET NG SCH (09:49)
[2020-10-24] MEDS ORDERED: LORazepam 2 MG/ML VIAL ONE (16:52)
[2020-10-24] MEDS: LORazepam 2 MG/ML VIAL IVP PRN (16:52)
[2020-10-24] MEDS ORDERED: DEXMEDETOMIDINE HCL 400 MCG in NS 96 ML IV PRN (17:00)
[2020-10-24] MEDS: FLUCONAZOLE 100 mg/ NS 50 ML IV SCH (21:16)
[2020-10-25] VITALS (30 sets, daily range): BP systolic 92–154
[2020-10-25] MEDS: 0.45% NACL 1,000 ML IV SCH (02:25)
[2020-10-25] MEDS: ENOXAPARIN SODIUM 100 MG/ML SYRINGE SUBCUT SCH ×2 (09:00→21:00)
[2020-10-25] MEDS: CHOLECALCIFEROL (VITAMIN D3) 5,000 UNIT TABLET NG SCH (09:00)
[2020-10-25] MEDS: FAMOTIDINE 20 MG TABLET NG SCH (09:00)
[2020-10-25] MEDS: DEXAMETHASONE SOD PHOSPHATE 10 MG/ML VIAL IVP SCH (09:00)
[2020-10-25] MEDS: ASCORBIC ACID 500 MG TABLET NG SCH ×2 (09:00→20:51)
[2020-10-25] MEDS: CEFEPIME 1 GM in D5W 50 ML IV SCH ×2 (10:30→20:52)
[2020-10-25] MEDS: FLUCONAZOLE 100 mg/ NS 50 ML IV SCH (20:52)
[2020-10-25] MEDS: SENNOSIDES 8.6 MG TABLET NG SCH (20:53)
[2020-10-25] MEDS: PROPOFOL DRIP 100 ML IV PRN (22:39)
[2020-10-26] VITALS (28 sets, daily range): BP systolic 99–140
[2020-10-26] MEDS: PROPOFOL DRIP 100 ML IV PRN ×5 (01:05→22:39)
[2020-10-26] MEDS: 0.45% NACL 1,000 ML IV SCH ×2 (05:01→18:34)
[2020-10-26 06:25] LABS: BASOPHILS % (AUTO) 0.2 % (0.0-2.0); EOSINOPHILS # (AUTO) 0.3 K/uL (0.0-0.4); EOSINOPHILS % (AUTO) 3.5 % (0.0-4.0); HEMOGLOBIN 12.5 g/dL (14.0-18.0); LYMPHOCYTES # (AUTO) 0.2 K/uL (1.0-5.5); MEAN CORPUSCULAR HEMOGLOBIN 51 pg (27-31); MEAN CORPUSCULAR HGB CONC 57 % (32-36); MEAN CORPUSCULAR VOLUME 89 fL (79.0-98.0); MONOCYTES % (AUTO) 0.6 % (1.7-9.3); NEUTROPHILS # (AUTO) 7.5 K/uL (1.8-7.7); NEUTROPHILS % (AUTO) 92.7 % (40.0-70.0); PLATELET COUNT (AUTO) 731 K/uL (130-430); RED BLOOD CELL COUNT(AUTO) 2.45 MIL/uL (4.2-6.2); RED CELL DISTRIBUTION WIDTH 15.5 % (9.0-15.0); WHITE BLOOD COUNT (AUTO) 8.1 K/uL (4.8-10.8)
[2020-10-26] MEDS: CHOLECALCIFEROL (VITAMIN D3) 5,000 UNIT TABLET NG SCH (09:00)
[2020-10-26] MEDS: ENOXAPARIN SODIUM 100 MG/ML SYRINGE SUBCUT SCH ×2 (09:00→21:00)
[2020-10-26] MEDS: DEXAMETHASONE SOD PHOSPHATE 10 MG/ML VIAL IVP SCH (09:00)
[2020-10-26] MEDS: CEFEPIME 1 GM in D5W 50 ML IV SCH ×2 (09:00→20:32)
[2020-10-26] MEDS: ASCORBIC ACID 500 MG TABLET NG SCH ×2 (09:00→20:32)
[2020-10-26] MEDS: FAMOTIDINE 20 MG TABLET NG SCH (09:00)
[2020-10-26 09:22] LABS: HEMATOCRIT 21.9 % (36-54)
[2020-10-26] MEDS ORDERED: NALOXONE HCL 0.4 MG/ML AMP (NARCAN) IVP PRN (14:45)
[2020-10-26] MEDS ORDERED: PROPOFOL DRIP 100 ML IV PRN (14:45)
[2020-10-26] MEDS: MORPHINE I.V. DRIP 100 ML IV PRN (18:48)
[2020-10-26] MEDS: BISACODYL 10 MG/SUPPOSITORY RC PRN (18:49)
[2020-10-26] MEDS: SENNOSIDES 8.6 MG TABLET NG SCH (20:32)
[2020-10-26] MEDS: FLUCONAZOLE 100 mg/ NS 50 ML IV SCH (20:32)
[2020-10-27] VITALS (23 sets, daily range): BP systolic 97–131
[2020-10-27] MEDS: PROPOFOL DRIP 100 ML IV PRN ×4 (02:18→21:51)
[2020-10-27] MEDS: 0.45% NACL 1,000 ML IV SCH ×2 (08:30→12:00)
[2020-10-27] MEDS: CEFEPIME 1 GM in D5W 50 ML IV SCH ×2 (09:24→21:25)
[2020-10-27] MEDS: FAMOTIDINE 20 MG TABLET NG SCH (09:25)
[2020-10-27] MEDS: DEXAMETHASONE SOD PHOSPHATE 10 MG/ML VIAL IVP SCH (09:25)
[2020-10-27] MEDS: ASCORBIC ACID 500 MG TABLET NG SCH ×2 (09:26→21:26)
[2020-10-27] MEDS: CHOLECALCIFEROL (VITAMIN D3) 5,000 UNIT TABLET NG SCH (09:26)
[2020-10-27] MEDS: ENOXAPARIN SODIUM 100 MG/ML SYRINGE SUBCUT SCH ×2 (09:58→21:42)
[2020-10-27] MEDS: ALBUTEROL MDI INHALATION 8 GM INH INH PRN ×2 (12:13→16:59)
[2020-10-27] MEDS: FLUCONAZOLE 100 mg/ NS 50 ML IV SCH (21:22)
[2020-10-27] MEDS: SENNOSIDES 8.6 MG TABLET NG SCH (21:25)
[2020-10-28] VITALS (27 sets, daily range): BP systolic 103–176
[2020-10-28] MEDS: MORPHINE I.V. DRIP 100 ML IV PRN (01:05)
[2020-10-28] MEDS: PROPOFOL DRIP 100 ML IV PRN ×6 (02:49→23:14)
[2020-10-28] MEDS: CEFEPIME 1 GM in D5W 50 ML IV SCH ×2 (09:41→21:10)
[2020-10-28] MEDS: ASCORBIC ACID 500 MG TABLET NG SCH ×2 (09:43→21:11)
[2020-10-28] MEDS: DEXAMETHASONE SOD PHOSPHATE 10 MG/ML VIAL IVP SCH (09:43)
[2020-10-28] MEDS: FAMOTIDINE 20 MG TABLET NG SCH (09:44)
[2020-10-28] MEDS: CHOLECALCIFEROL (VITAMIN D3) 5,000 UNIT TABLET NG SCH (09:44)
[2020-10-28] MEDS: ENOXAPARIN SODIUM 100 MG/ML SYRINGE SUBCUT SCH ×2 (09:45→21:00)
[2020-10-28] MEDS: 0.45% NACL 1,000 ML IV SCH ×2 (10:25→23:45)
[2020-10-28] MEDS: ACETAMINOPHEN 650 MG/20.3 ML UDC NG PRN (11:59)
[2020-10-28] MEDS: ALBUTEROL MDI INHALATION 8 GM INH INH PRN ×2 (12:20→16:22)
[2020-10-28] MEDS: INSULIN REGULAR, HUMAN 100 UNITS/ML, 10 ML VIAL (humuLIN R) SUBCUT PRN (18:03)
[2020-10-28] MEDS: SENNOSIDES 8.6 MG TABLET NG SCH (21:00)
[2020-10-29] VITALS (31 sets, daily range): BP systolic 99–141
[2020-10-29] MEDS: PROPOFOL DRIP 100 ML IV PRN ×4 (01:34→15:42)
[2020-10-29] MEDS: MORPHINE I.V. DRIP 100 ML IV PRN (06:34)
[2020-10-29] MEDS: 0.45% NACL 1,000 ML IV SCH (13:05)
[2020-10-29 13:15] LABS: BASOPHILS % (AUTO) 0.2 % (0.0-2.0); EOSINOPHILS # (AUTO) 0.5 K/uL (0.0-0.4); EOSINOPHILS % (AUTO) 4.5 % (0.0-4.0); HEMATOCRIT 31.3 % (36-54); HEMOGLOBIN 10.3 g/dL (14.0-18.0); LYMPHOCYTES # (AUTO) 0.7 K/uL (1.0-5.5); LYMPHOCYTES % (AUTO) 5.8 % (20.5-51.5); MEAN CORPUSCULAR HEMOGLOBIN 29 pg (27-31); MEAN CORPUSCULAR HGB CONC 33 % (32-36); MEAN CORPUSCULAR VOLUME 88 fL (79.0-98.0); MONOCYTES # (AUTO) 0.3 K/uL (0.0-1.0); MONOCYTES % (AUTO) 2.8 % (1.7-9.3); NEUTROPHILS # (AUTO) 10.1 K/uL (1.8-7.7); NEUTROPHILS % (AUTO) 86.7 % (40.0-70.0); PLATELET COUNT (AUTO) 202 K/uL (130-430); RED BLOOD CELL COUNT(AUTO) 3.57 MIL/uL (4.2-6.2); RED CELL DISTRIBUTION WIDTH 13.6 % (9.0-15.0); WHITE BLOOD COUNT (AUTO) 11.6 K/uL (4.8-10.8)
[2020-10-29] MEDS: DEXAMETHASONE SOD PHOSPHATE 10 MG/ML VIAL IVP SCH (13:15)
[2020-10-29] MEDS: ASCORBIC ACID 500 MG TABLET NG SCH ×2 (13:16→20:47)
[2020-10-29] MEDS: CHOLECALCIFEROL (VITAMIN D3) 5,000 UNIT TABLET NG SCH (13:16)
[2020-10-29] MEDS: FAMOTIDINE 20 MG TABLET NG SCH (13:18)
[2020-10-29 13:19] LABS: ALANINE AMINOTRANSFERASE 68 U/L (12-78); ALBUMIN 1.8 g/dL (3.4-4.8); ASPARTATE AMINOTRANSFERASE 50 U/L (10-37); CALCIUM 8.1 mg/dL (8.4-11.0); CHLORIDE 99 mmol/L (98-107); CREATININE 0.51 mg/dL (0.55-1.30); GLUCOSE 128 mg/dL (70-99); POTASSIUM 3.7 mmol/L (3.5-5.1); TOTAL BILIRUBIN 0.5 mg/dL (0.0-1.0); UREA NITROGEN, BLOOD 19 mg/dL (8-21)
[2020-10-29 13:33] LABS: SODIUM SERUM 136 mmol/L (136-145)
[2020-10-29 13:35] LABS: ANION GAP < 3 (5-15); GFR AFRICAN AMERICAN 215 mL/min (>90)
[2020-10-29] MEDS: ENOXAPARIN SODIUM 100 MG/ML SYRINGE SUBCUT SCH ×2 (13:35→20:45)
[2020-10-29] MEDS: SENNOSIDES 8.6 MG TABLET NG SCH (20:47)
[2020-10-30] VITALS (26 sets, daily range): BP systolic 105–163
[2020-10-30] MEDS: PROPOFOL DRIP 100 ML IV PRN ×6 (00:21→23:25)
[2020-10-30] MEDS: MORPHINE I.V. DRIP 100 ML IV PRN ×2 (00:22→16:48)
[2020-10-30 07:48] LABS: CREATININE 0.43 mg/dL (0.55-1.30); POTASSIUM 3.8 mmol/L (3.5-5.1)
[2020-10-30 07:49] LABS: BASOPHILS # (AUTO) 0.1 K/uL (0.0-0.2); BASOPHILS % (AUTO) 0.8 % (0.0-2.0); EOSINOPHILS # (AUTO) 0.4 K/uL (0.0-0.4); EOSINOPHILS % (AUTO) 3.7 % (0.0-4.0); HEMATOCRIT 30.1 % (36-54); HEMOGLOBIN 9.9 g/dL (14.0-18.0); LYMPHOCYTES # (AUTO) 1.2 K/uL (1.0-5.5); LYMPHOCYTES % (AUTO) 10.6 % (20.5-51.5); MEAN CORPUSCULAR HEMOGLOBIN 29 pg (27-31); MEAN CORPUSCULAR HGB CONC 33 % (32-36); MEAN CORPUSCULAR VOLUME 88 fL (79.0-98.0); MONOCYTES # (AUTO) 0.3 K/uL (0.0-1.0); MONOCYTES % (AUTO) 3.1 % (1.7-9.3); NEUTROPHILS % (AUTO) 81.8 % (40.0-70.0); PLATELET COUNT (AUTO) 192 K/uL (130-430); RED BLOOD CELL COUNT(AUTO) 3.41 MIL/uL (4.2-6.2); RED CELL DISTRIBUTION WIDTH 13.6 % (9.0-15.0)
[2020-10-30] MEDS: CHOLECALCIFEROL (VITAMIN D3) 5,000 UNIT TABLET NG SCH (08:40)
[2020-10-30] MEDS: ENOXAPARIN SODIUM 100 MG/ML SYRINGE SUBCUT SCH ×2 (08:41→19:57)
[2020-10-30] MEDS: DEXAMETHASONE SOD PHOSPHATE 10 MG/ML VIAL IVP SCH (08:41)
[2020-10-30] MEDS: 0.45% NACL 1,000 ML IV SCH ×2 (08:42→15:45)
[2020-10-30] MEDS: FAMOTIDINE 20 MG TABLET NG SCH (08:44)
[2020-10-30] MEDS: ASCORBIC ACID 500 MG TABLET NG SCH ×2 (08:44→19:54)
[2020-10-30] MEDS: BISACODYL 10 MG/SUPPOSITORY RC PRN (08:46)
[2020-10-30] MEDS: SENNOSIDES 8.6 MG TABLET NG SCH (19:50)
[2020-10-31] VITALS (29 sets, daily range): BP systolic 111–157
[2020-10-31] MEDS: PROPOFOL DRIP 100 ML IV PRN ×3 (01:44→11:04)
[2020-10-31] MEDS: DEXAMETHASONE SOD PHOSPHATE 10 MG/ML VIAL IVP SCH (08:44)
[2020-10-31] MEDS: FAMOTIDINE 20 MG TABLET NG SCH (08:44)
[2020-10-31] MEDS: ENOXAPARIN SODIUM 100 MG/ML SYRINGE SUBCUT SCH ×2 (08:45→21:00)
[2020-10-31] MEDS: ASCORBIC ACID 500 MG TABLET NG SCH ×2 (08:45→21:23)
[2020-10-31] MEDS: CHOLECALCIFEROL (VITAMIN D3) 5,000 UNIT TABLET NG SCH (08:45)
[2020-10-31] MEDS: ALBUTEROL MDI INHALATION 8 GM INH INH PRN (12:22)
[2020-10-31] MEDS: INSULIN REGULAR, HUMAN 100 UNITS/ML, 10 ML VIAL (humuLIN R) SUBCUT PRN (12:45)
[2020-10-31] MEDS: SENNOSIDES 8.6 MG TABLET NG SCH (21:23)
[2020-11-01] VITALS (29 sets, daily range): BP systolic 107–147
[2020-11-01 04:57] LABS: BASOPHILS # (AUTO) 0.1 K/uL (0.0-0.2); BASOPHILS % (AUTO) 1.1 % (0.0-2.0); EOSINOPHILS # (AUTO) 0.4 K/uL (0.0-0.4); HEMATOCRIT 27.2 % (36-54); HEMOGLOBIN 9.2 g/dL (14.0-18.0); LYMPHOCYTES # (AUTO) 1.4 K/uL (1.0-5.5); LYMPHOCYTES % (AUTO) 12.8 % (20.5-51.5); MEAN CORPUSCULAR HEMOGLOBIN 30 pg (27-31); MEAN CORPUSCULAR HGB CONC 34 % (32-36); MEAN CORPUSCULAR VOLUME 88 fL (79.0-98.0); MONOCYTES # (AUTO) 0.3 K/uL (0.0-1.0); NEUTROPHILS # (AUTO) 8.5 K/uL (1.8-7.7); NEUTROPHILS % (AUTO) 79.1 % (40.0-70.0); PLATELET COUNT (AUTO) 217 K/uL (130-430); RED BLOOD CELL COUNT(AUTO) 3.08 MIL/uL (4.2-6.2); RED CELL DISTRIBUTION WIDTH 13.7 % (9.0-15.0); WHITE BLOOD COUNT (AUTO) 10.7 K/uL (4.8-10.8)
[2020-11-01 05:15] LABS: ALBUMIN 1.6 g/dL (3.4-4.8); CALCIUM 7.9 mg/dL (8.4-11.0); CREATININE 0.48 mg/dL (0.55-1.30); PHOSPHORUS 3.5 mg/dL (2.7-4.5); POTASSIUM 3.7 mmol/L (3.5-5.1); TOTAL BILIRUBIN 0.7 mg/dL (0.0-1.0)
[2020-11-01] MEDS: ASCORBIC ACID 500 MG TABLET NG SCH ×2 (08:51→20:52)
[2020-11-01] MEDS: DEXAMETHASONE SOD PHOSPHATE 10 MG/ML VIAL IVP SCH (08:51)
[2020-11-01] MEDS: FAMOTIDINE 20 MG TABLET NG SCH (08:51)
[2020-11-01] MEDS: CHOLECALCIFEROL (VITAMIN D3) 5,000 UNIT TABLET NG SCH (08:52)
[2020-11-01] MEDS: ENOXAPARIN SODIUM 100 MG/ML SYRINGE SUBCUT SCH ×2 (09:04→21:19)
[2020-11-01] MEDS ORDERED: FUROSEMIDE 40 MG/4 ML VIAL ONE (11:51)
[2020-11-01] MEDS ORDERED: FUROSEMIDE 40 MG/4 ML VIAL IVP ONE (12:00)
[2020-11-01] MEDS: 0.45% NACL 1,000 ML IV SCH ×2 (20:52→20:54)
[2020-11-01] MEDS: SENNOSIDES 8.6 MG TABLET NG SCH (20:52)
[2020-11-01] MEDS: PROPOFOL DRIP 100 ML IV PRN (21:15)
[2020-11-01] MEDS: MORPHINE I.V. DRIP 100 ML IV PRN (21:17)
[2020-11-02] VITALS (30 sets, daily range): BP systolic 111–150
[2020-11-02] MEDS: PROPOFOL DRIP 100 ML IV PRN ×5 (02:15→22:44)
[2020-11-02] MEDS: 0.45% NACL 1,000 ML IV SCH (05:53)
[2020-11-02] MEDS: DEXAMETHASONE SOD PHOSPHATE 10 MG/ML VIAL IVP SCH (09:34)
[2020-11-02] MEDS: CHOLECALCIFEROL (VITAMIN D3) 5,000 UNIT TABLET NG SCH (09:35)
[2020-11-02] MEDS: ENOXAPARIN SODIUM 100 MG/ML SYRINGE SUBCUT SCH ×2 (09:35→21:00)
[2020-11-02] MEDS: FAMOTIDINE 20 MG TABLET NG SCH (09:35)
[2020-11-02] MEDS: ASCORBIC ACID 500 MG TABLET NG SCH ×2 (09:35→21:00)
[2020-11-02] MEDS: MORPHINE I.V. DRIP 100 ML IV PRN ×2 (10:11→22:44)
[2020-11-02 10:13] LABS: BASOPHILS # (AUTO) 0.1 K/uL (0.0-0.2); BASOPHILS % (AUTO) 0.5 % (0.0-2.0); EOSINOPHILS # (AUTO) 0.4 K/uL (0.0-0.4); EOSINOPHILS % (AUTO) 3.6 % (0.0-4.0); HEMATOCRIT 29.9 % (36-54); HEMOGLOBIN 9.8 g/dL (14.0-18.0); LYMPHOCYTES # (AUTO) 1.9 K/uL (1.0-5.5); LYMPHOCYTES % (AUTO) 17.9 % (20.5-51.5); MEAN CORPUSCULAR HEMOGLOBIN 29 pg (27-31); MEAN CORPUSCULAR HGB CONC 33 % (32-36); MEAN CORPUSCULAR VOLUME 89 fL (79.0-98.0); MONOCYTES # (AUTO) 0.4 K/uL (0.0-1.0); MONOCYTES % (AUTO) 3.8 % (1.7-9.3); NEUTROPHILS # (AUTO) 7.9 K/uL (1.8-7.7); NEUTROPHILS % (AUTO) 74.2 % (40.0-70.0); PLATELET COUNT (AUTO) 264 K/uL (130-430); RED BLOOD CELL COUNT(AUTO) 3.38 MIL/uL (4.2-6.2); WHITE BLOOD COUNT (AUTO) 10.6 K/uL (4.8-10.8)
[2020-11-02 10:23] LABS: ALBUMIN 1.8 g/dL (3.4-4.8); CALCIUM 8.5 mg/dL (8.4-11.0); CREATININE 0.49 mg/dL (0.55-1.30); POTASSIUM 3.6 mmol/L (3.5-5.1); TOTAL BILIRUBIN 0.7 mg/dL (0.0-1.0)
[2020-11-02] MEDS: INSULIN REGULAR, HUMAN 100 UNITS/ML, 10 ML VIAL (humuLIN R) SUBCUT PRN (12:00)
[2020-11-02] MEDS: SENNOSIDES 8.6 MG TABLET NG SCH (21:00)
[2020-11-03] VITALS (27 sets, daily range): BP systolic 122–180
[2020-11-03 05:33] LABS: ALBUMIN 1.9 g/dL (3.4-4.8); CALCIUM 8.6 mg/dL (8.4-11.0); CREATININE 0.45 mg/dL (0.55-1.30); POTASSIUM 3.4 mmol/L (3.5-5.1); TOTAL BILIRUBIN 0.7 mg/dL (0.0-1.0)
[2020-11-03 05:49] LABS: BASOPHILS # (AUTO) 0.1 K/uL (0.0-0.2); BASOPHILS % (AUTO) 0.6 % (0.0-2.0); EOSINOPHILS # (AUTO) 0.4 K/uL (0.0-0.4); EOSINOPHILS % (AUTO) 3.9 % (0.0-4.0); HEMATOCRIT 30.2 % (36-54); LYMPHOCYTES # (AUTO) 1.8 K/uL (1.0-5.5); LYMPHOCYTES % (AUTO) 16.6 % (20.5-51.5); MEAN CORPUSCULAR HEMOGLOBIN 29 pg (27-31); MEAN CORPUSCULAR HGB CONC 33 % (32-36); MEAN CORPUSCULAR VOLUME 88 fL (79.0-98.0); MONOCYTES # (AUTO) 0.5 K/uL (0.0-1.0); MONOCYTES % (AUTO) 4.4 % (1.7-9.3); NEUTROPHILS # (AUTO) 8.1 K/uL (1.8-7.7); NEUTROPHILS % (AUTO) 74.5 % (40.0-70.0); PLATELET COUNT (AUTO) 268 K/uL (130-430); RED BLOOD CELL COUNT(AUTO) 3.43 MIL/uL (4.2-6.2); WHITE BLOOD COUNT (AUTO) 10.8 K/uL (4.8-10.8)
[2020-11-03] MEDS: DEXAMETHASONE SOD PHOSPHATE 10 MG/ML VIAL IVP SCH (08:08)
[2020-11-03] MEDS: FAMOTIDINE 20 MG TABLET NG SCH (08:08)
[2020-11-03] MEDS: ENOXAPARIN SODIUM 100 MG/ML SYRINGE SUBCUT SCH ×2 (08:08→21:00)
[2020-11-03] MEDS: ASCORBIC ACID 500 MG TABLET NG SCH ×2 (08:08→20:18)
[2020-11-03] MEDS: CHOLECALCIFEROL (VITAMIN D3) 5,000 UNIT TABLET NG SCH (08:08)
[2020-11-03] MEDS: ACETAMINOPHEN 650 MG/20.3 ML UDC NG PRN (08:09)
[2020-11-03] MEDS: 0.45% NACL 1,000 ML IV SCH (08:56)
[2020-11-03] MEDS: PROPOFOL DRIP 100 ML IV PRN ×3 (12:09→18:58)
[2020-11-03] MEDS: INSULIN REGULAR, HUMAN 100 UNITS/ML, 10 ML VIAL (humuLIN R) SUBCUT PRN ×2 (12:21→17:52)
[2020-11-03] MEDS: SENNOSIDES 8.6 MG TABLET NG SCH (20:17)
[2020-11-04] VITALS (26 sets, daily range): BP systolic 46–195
[2020-11-04] MEDS: PROPOFOL DRIP 100 ML IV PRN ×5 (00:42→21:43)
[2020-11-04] MEDS: FAMOTIDINE 20 MG TABLET NG SCH (08:56)
[2020-11-04] MEDS: 0.45% NACL 1,000 ML IV SCH (08:56)
[2020-11-04] MEDS: DEXAMETHASONE SOD PHOSPHATE 10 MG/ML VIAL IVP SCH (08:56)
[2020-11-04] MEDS: ASCORBIC ACID 500 MG TABLET NG SCH ×2 (08:57→21:41)
[2020-11-04] MEDS: CHOLECALCIFEROL (VITAMIN D3) 5,000 UNIT TABLET NG SCH (08:57)
[2020-11-04] MEDS: ENOXAPARIN SODIUM 100 MG/ML SYRINGE SUBCUT SCH ×2 (09:35→21:41)
[2020-11-04] MEDS: INSULIN REGULAR, HUMAN 100 UNITS/ML, 10 ML VIAL (humuLIN R) SUBCUT PRN ×3 (13:14→17:16)
[2020-11-04] MEDS: ALBUTEROL MDI INHALATION 8 GM INH INH PRN (15:07)
[2020-11-04] MEDS: SENNOSIDES 8.6 MG TABLET NG SCH (21:40)
[2020-11-04] MEDS: MORPHINE I.V. DRIP 100 ML IV PRN (21:40)
[2020-11-04] MEDS ORDERED: AMIODARONE HCL 450 MG/9 ML VIAL IV ONE (23:49)
== END 2020-11-05 08:01 | disposition expired | DRG 207 ==
LOC: SED 12:36 → STU 15:42 → SIC 10-17 12:09
PROVIDERS: ADMIT Family Medicine; ATTEND Family Medicine
PROC: XW13325 Transfusion of Convalescent Plasma (Nonautologous) into Peripheral Vein, Percutaneous Approach, New Technology Group 5 (ICD-10-PCS; 2020-10-11)
PROC: 5A09457 Assistance with Respiratory Ventilation, 24-96 Consecutive Hours, Continuous Positive Airway Pressure (ICD-10-PCS; 2020-10-16)
PROC: 5A1955Z Respiratory Ventilation, Greater than 96 Consecutive Hours (ICD-10-PCS; principal; 2020-10-17)
PROC: 0BH17EZ Insertion of Endotracheal Airway into Trachea, Via Natural or Artificial Opening (ICD-10-PCS; 2020-10-17)
PROC: 5A12012 Performance of Cardiac Output, Single, Manual (ICD-10-PCS; 2020-11-04)
DX: U07.1 COVID-19 (principal); J12.82 Pneumonia due to coronavirus disease 2019; J96.01 Acute respiratory failure with hypoxia; J96.02 Acute respiratory failure with hypercapnia; J44.0 Chronic obstructive pulmonary disease with (acute) lower respiratory infection; I82.623 Acute embolism and thrombosis of deep veins of upper extremity, bilateral; D69.6 Thrombocytopenia, unspecified; R74.02 Elevation of levels of lactic acid dehydrogenase [LDH]; K59.00 Constipation, unspecified; D72.819 Decreased white blood cell count, unspecified; E66.9 Obesity, unspecified; I49.01 Ventricular fibrillation; I10 Essential (primary) hypertension; Z86.73 Personal history of transient ischemic attack (TIA), and cerebral infarction without residual deficits; Z87.891 Personal history of nicotine dependence; Z88.0 Allergy status to penicillin; Z68.29 Body mass index [BMI] 29.0-29.9, adult; Z79.01 Long term (current) use of anticoagulants; I46.9 Cardiac arrest, cause unspecified
CPT/HCPCS: 36415; 36600; 71045; 74018; 80048; 80053; 81000-TC; 82550-TC; 82728; 82803-TC; 82962; 83605; 83615-TC; 83735-TC; 83880; 84100-TC; 84484; 85025; 85379; 85384-TC; 85610-TC; 85730-TC; 86140; 86886; 86900; 86901; 87040-TC; 87070-TC; 87086; 87205-TC; 92950; 93005; 93970; 94002; 94003; 94640; 94660; 94760; 96365; 96375; 99291; C1751; G0378; J0330; J0456; J0692; J0696; J1100; J1450; J1630; J1650; J1940; J2060; J2185; J2270; J2405; J2704; J3490; J7030; J7040; J7050; J7060; P9017